=== PATIENT | male | born 1970 | race Caucasian/White ===

== ENCOUNTER 2024-05-17 15:03 | Emergency (ER) | payer BC ==
[~2024-05-17] VITALS: Ht 185.4 cm; Wt 99.8 kg
[2024-05-17] MEDS ORDERED: LIDO1ADH23 TP (19:05)
[2024-05-17] MEDS ORDERED: LIDO30AD10 TP (19:05)
[2024-05-17] MEDS ORDERED: MELO15TA13 PO (19:05)
[2024-05-17 19:19] VITALS: BP 138/82; TEMP 98.8; O2SAT 99
== END 2024-05-17 19:21 | disposition home or self-care (01) ==
LOC: ER 15:03
DX: M54.40 Lumbago with sciatica, unspecified side (principal); Z76.0 Encounter for issue of repeat prescription; Z79.899 Other long term (current) drug therapy
CPT/HCPCS: A4606; A4663